=== PATIENT | male | born 1950 | race Caucasian/White ===

== ENCOUNTER 2024-10-13 14:04 | Outpatient (CLI) | payer MEDICARE, BC, SELFPAY ==
--- NOTE | ~2024-10-13 | XR_ITS ---
XR hip LT min 2V 10/13/2024 14:24 Indication: Left hip pain Procedure: 2 views left hip Comparison: No prior studies for comparison. Findings: There is mild osteoarthritis of the left hip. No fracture, subluxation or dislocation. No s oft tissue abnormality. Impression: 1: Mild osteoarthritis of the left hip. Reviewed, dictated and finalized at location B. [employer] Impression: 1: Mild osteoarthritis of the left hip.
== END 2024-10-13 14:05 | disposition home or self-care (01) ==
LOC: MICIMG 14:09
PROVIDERS: PCP Family Medicine; Visit Provider Family Medicine
DX: M16.12 Unilateral primary osteoarthritis, left hip (principal)
CPT/HCPCS: 73502

== ENCOUNTER 2025-08-10 21:56 | Emergency (ER) | payer MEDICARE, BC, SELFPAY ==
[2025-08-10 22:00] VITALS: BP 171/97; PULSE 56; RESP 20; TEMP 36.7; O2SAT 99
[2025-08-10 22:13] VITALS: BP 164/85; PULSE 68; RESP 18; TEMP 36.6; O2SAT 99
--- OUTSIDE RECORDS SUMMARY | 2025-08-10 22:47 | XMS_ITS | Encounter Summary ---
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 Historical Provider Final Res ult * PROCEDURE - RESULT (07/18/2017 12:00 AM CDT) Narrative 07/18/2017 12:00 AM CDT Ordered by an unspecified provider. Historical Provider Final Res ult documented in this encounter Visit Diagnoses Not on filedocumented in this encounter Additional Health Concerns Infection Onset Date Last Indicated Resolved Time COVID: Suspected 07/26/2020 07/26/2020 07/27/2020 2:15 PM CDT COVID19 07/26/2020 07/26/2020 08/09/2020 3:07 AM CDT COVID: Recovered Comment:Added based on recent COVID infection. 08/09/2020 09/28/2020 12/07/2020 3:[address] documented as of this encounter Care Teams Food Storeroom Clerk Relationship Specialty Start Date End Date Nirmal Ely DO PCP - General Family Medicine 04/01/19 documented as of this encounter
--- OUTSIDE RECORDS SUMMARY | 2025-08-10 22:47 | XMS_ITS | Clinical Summary ---
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 Gender Identity Not on file Sexual Orientation Not on file Plan of Treatment Health Maintenance Due Date Last Done Comments Hepatitis C Virus (HCV) Screening 1950 Pneumococcal Immunization (5 0+ years) (1 of 1 - PCV) 1998 Zoster Immunization (1 of 2) 1998 Respiratory Syncytial Virus (RSV) Immunization (Adult) (1 - 1-dose 75+ series) 2023 Influenza Immunization (#1) 2025 10/01/2021 SARS-COV-2 Immunization ( season) 2025 12/08/2021, 02/04/2021, 01/13/2021 DTaP/Tdap/Td Immunization Discontinued 10/01/2021 TdaP Immunization Completed 10/01/2021 Hepatitis B Immunization Aged Out No longer eligible based on patient's age to complete this topic Human Papillomavirus (HPV) Immunization Aged Out No longer eligible based on patient's age to complete this topic Meningococcal Immunization (ACWY) Aged Out No longer eligible based on patient's age to complete this topic Rotavirus Immunization Aged Out No lo nger eligible based on patient's age to complete this topic
--- OUTSIDE RECORDS SUMMARY | 2025-08-10 22:47 | XMS_ITS | Clinical Summary ---
Author Organization [facility] Address [address] [place] [address] Care Team Providers Care Digital Account Coordinator Name Role Phone Jose De Jesus Cotto DO Primary Care Provider [phone] Allergies No known active allergies Medications amLODIPine (NORVASC) 5 MG tablet Take 1 tablet (5 mg total) by mouth daily. 3 Active benazepril (LOTENSIN) 40 MG tablet Take 1 tablet (40 mg total) by mouth daily. 3 Active lovastatin (MEVACOR) 20 MG tablet Take 1 tablet (20 mg total) by mouth daily. 3 Active multivitamin (THERA) tablet Take 1 tablet by mouth daily. Active traMADol (ULTRAM) 50 MG tablet Take 1 tablet (50 mg total) by mouth nightly at bedtime. 4 Active acetaminophen-c odeine (TYLENOL #3) 300-30 MG tablet Take 1 tablet by mouth nightly as needed. at bedtime. 5 Active fluticasone propionate (FLONASE) 50 MCG/ACT nasal spray 2 sprays by Nasal route daily. 16 g 5 Active clotrimazole (LOTRIMIN AF) 1 % cream APPLY TO THE AFFECTED AND SURROUNDING AREAS OF SKIN BY TOPICAL ROUTE 2 TIMES PER DAY IN THE MORNING AND EVENING 5 Active tamsulosin (FLOMAX) 0.4 MG Cap Take 1 capsule (0.4 mg total) by mouth nightly at bedtime. Active Active Problems Problem Noted Date Diagnosed Date Bradycardia 06/13/2025 Assessment & Plan (06/13/2025 2:51 PM CDT): He was recently evaluated in the ER due to bradycardia and dizziness. He wore an event monitor 09/2024 that did not show any significant heart block or pauses. Given ongoing concerns, will repeat a 2-week event monitor to assess for any significant bradyarrhythmias Dizziness 06/13/2025 Assessment & Plan (06/13/2025 2:54 PM CDT): Patient has ongoing concerns about dizziness especially with bending over. Checking a 2-week event monitor as noted above. Recent CTA head and neck without any significant carotid artery disease. Recent echocardiogram with normal LVEF and no significant valvular abnormalities. Advised patient to check orthostatic vital signs at home. May benefit from ENT evaluation. Cellulitis of left lower limb 03/16/2025 Pain of left calf 03/16/2025 Morbid obesity 11/15/2024 PFO (patent foramen ovale) ([facility]) 11/15/2024 Assessment & Plan (06/13/2025 2:46 PM CDT): Echocardiogram after recent CVA showed a small PFO. Will reach out to neurology to see recommendations regarding PFO closure. Assessment & Plan (01/04/2025 2:05 PM PELLET MACHINE OPERATOR): I am recommending that he follow-up with neurology to evaluate for PFO as a potential source of his cerebrovascular accident. I did discuss the procedure of patent foramen ovale closure with the patient. I discussed risks and benefits of the procedure that include but are not limited to: Bleeding, infection, cerebrovascular accident and device embolization. I quoted a risk of 1% with device embolization. I did explain that if there was device embolization, there could be a need for cardiac surgery. Assessment & Plan (11/15/2024 12:48 PM PELLET MACHINE OPERATOR): Patient recently hospitalized for a small left parietal CVA. Echocardiogram revealed a small PFO. Patient has not followed up with neurology as an outpatient. CVA (cerebral vascular accident) ([facility]) 11/15/2024 Assessment & Plan (11/15/2024 12:59 PM PELLET MACHINE OPERATOR): Recent hospitalization at the beginning of September for a small left-sided parietal CVA. Echocardiogram completed at that time showed a small PFO. MCOT results are pending. Patient had a neurology consult while in the hospital and was started on Eliquis due to also finding pulmonary emboli on CT imaging. If Eliquis is stopped, neurology recommended single antiplatelet therapy. Patient has not followed up with neurology as an outpatient. Laceration of right lower leg 10/11/2024 Syncope 10/04/2024 Assessment & Plan (11/15/2024 1:13 PM PELLET MACHINE OPERATOR): Patient had a syncopal event at the end of September. Completed a MCOT with results pending. No recurrent episodes of syncope since discharge. PE (pulmonary thromboembolism) ([facility]) 09/23/2024 Assessment & Plan (06/13/2025 2:40 PM CDT): Patient had multiple nonocclusive right pulmonary emboli found on CT 09/23/2024 with no evidence of right heart strain. He has completed greater than 3 months worth of anticoagulation. Advised patient he can stop Eliquis at this time. Assessment & Plan (01/04/2025 2:04 PM PELLET MACHINE OPERATOR): Patient had Multiple nonocclusive right pulmonary emboli found on CT 09/23/2024 with no evidence of right heart strain. Currently on anticoagulation with Eliquis. Assessment & Plan (11/15/2024 12:37 PM PELLET MACHINE OPERATOR): Patient had Multiple nonocclusive right pulmonary emboli found on CT 09/23/2024 with no evidence of right heart strain. Currently on anticoagulation with Eliquis and will continue for 3 months. Cerebrovascular accident (CV A) due to embolism of left middle cerebral artery ([facility]) 09/22/2024 Assessment & Plan (06/13/2025 2:49 PM CDT): He presented to the hospital in September 2024 with right upper extremity weakness and was found to have an acute infarct in the left parietal lobe. He was also found to have a DVT at the time. His MRI shows old infarcts in the cerebellum and the caudate nucleus. His CTA did not show any significant disease in the intracranial vessels. He wore an event monitor that shows no signs of atrial fibrillation. Will reach out to neurology to discuss possible need for PFO closure. Assessment & Plan (01/04/2025 2:04 PM PELLET MACHINE OPERATOR): He presented to the hospital in September 2024 with right upper extremity weakness and was found to have an acute infarct in the left parietal lobe. He was also found to have a DVT at the time. I am recommending urology consultation to determine the etiology of his cerebrovascular accidents. His MRI also shows old infarcts in the cerebellum and the caudate nucleus. His CTA did not show any significant disease in the intracranial vessels. He wore an event monitor that shows no signs of atrial fibrillation. Morbid obesity 04/06/2024 Idiopathic peripheral neuropathy 04/05/2024 Osteoarthrosis 04/05/2024 Chronic fatigue 10/22/2022 Hip pain 10/22/2022 Neuropathy 10/22/2022 Dermatitis 09/28/2019 Osteoarthritis of both hands 04/06/2019 Primary hypertension 07/07/2017 Assessment & Plan (06/13/2025 2:47 PM CDT): Blood pressure is mildly elevated in office. Continue amlodipine and benazepril. Advised patient to monitor blood pressure at home. Dyslipidemia 07/17/2016 Resolved Problems Problem Noted Date Diagnosed Date Resolved Date Encounter for follow-up exam ination after completed treatment for conditions other than malignant neoplasm 10/11/2024 06/20/2025 Full code status 10/01/2021 12/20/2024 Encounters Date Type Department Care Team Description 08/09/2025 Results Follow-Up [facility] [address] [address] Ashanti Gannon RN [facility] - [address] [facility] - Today 06/20/2025 10:30 AM CDT Telephone [facility] [address] [address] Radha De La Vega PA Holter Monitor 06/13/2025 11:00 AM CDT Office Visit [facility] [place] [address] Radha De La Vega PA Follow Up (CVA, PFO, PE) 06/13/2025 Travel 05/30/2025 11:00 AM CDT Office Visit [facility] Multispecialty Care - [facility] [address], [address] [place] [address] Rohini Camacho MD New Patient (TIA ) 05/30/2025 Travel 05/20/2025 4:34 PM CDT - 05/20/2025 8:53 PM CDT Emergency [facility] [place] [address] Aden Gr MD Poisoning; Dizziness Discharge Disposition: Home or Self Care (Routine Discharge) 05/20/2025 Travel from Last 3 Months Immunizations Immunization Administration Dates Next Due Fluzone (IIV3, Trivalent, 0.5 ML Prefilled Syrin ge) 09/24/2024 Social History Tobacco Use Types Packs/Day Years Used Date Smoking Tobacco: Never Passive Smoke Exposure: Never Smokeless Tobacco: Never Tobacco Cessation:Counseling Given: Yes Alcohol Use Standard Drinks/Week Comments Yes 0 (1 standard drink = 0.6 oz pur e alcohol) social [facility] Utilities Answer Date Recorded In the past 12 months has e [employer], or water [employer] threatened to shut off services in your home? No 09/22/2024 Humiliation, Afraid, Rape, and Kick questionnair e Answer Date Recorded Within the last year, have y ou been afraid of your partner or ex-partner? No 09/22/2024 Within the last year, have y ou been humiliated or emotionally abused in other ways by your partner or ex-partner? No Within the last year, have y ou been kicked, hit, slapped, or otherwise physically hurt by your partner or ex-partner? No 09/22/2024 Within the last year, have y ou been raped or forced to have any kind of sexual activity by your partner or ex-partner? No 09/22/2024 Overall Financial Resource Strain (CARDIA) Answe r Date Recorded How hard is it for you to pa y for the very basics like food, housing, medical care, and heating? Not hard at all 09/22/2024 PHQ-2 Answer Date Recorded Patient Health Questionnaire-2 Score 0 05/30/2025 Hunger Vital Sign Answer Date Recorded Within the past 12 months, y ou worried that your food would run out before you got the money to buy more. Never true 09/22/20 24 Within the past 12 months, t he food you bought just didn't last and you didn't have money to get more. Never true 09/22/2024 PRAPARE - Transportation Answer Date Re corded In the past 12 months, has l ack of transportation kept you from medical appointments or from getting medications? No 04/2024 In the past 12 months, has l ack of transportation kept you from meetings, work, or from getting things needed for daily living? No 09/22/2024 Housing Stability Vital Sign Answer Laurent e Recorded In the last 12 months, was t here a time when you were not able to pay the mortgage or rent on time? No 09/22/2024 In the past 12 months, how m any times have you moved where you were living? 0 09/22/2024 At any time in the past 12 m [facility], were you homeless or living in a correction (including now)? No 09/22/2024 Sex and Gender Information Value Date Recorded Sex Assigned at Male 12/13/2024 11:29 AM PELLET MACHINE OPERATOR Legal Sex Male 12:55 PM CDT Gender Identity Not on file Sexual Orientation Not on file Last Filed Vital Signs Vital Sign Reading Time Taken Comments Blood Pressure 140/80 06/13/2025 10:49 AM CDT Pulse 54 06/13/2025 10:49 AM CDT Temperature 37.1 C (98.7 F) 05/20/2025 4:26 PM CDT Respiratory Rate 23 05/20/2025 8:30 PM CDT Oxygen Saturation 98% 06/13/2025 10:49 AM CDT Inhaled Oxygen Concentration - - Weight 110 kg (242 lb 6.4 oz) 06/13/2025 10:49 A M CDT Height 180.3 cm (5' 11) 06/13/2025 10:49 AM CDT Body Mass Index 33.81 06/13/2025 10:49 AM CDT Plan of Treatment Upcoming Encounters Date Type Department Care Team (Late st Contact Info) Description 02/06/2026 1:30 PM CDT Office Visit [facility] [place] [address] Rober Trinidad MD [facility]. [address] [place] [address] 05/31/2026 1:00 PM CDT Office Visit [facility] Multispecialty Care - [facility] [address], [address] [place] [address] Rohini Camacho MD [address] [place] [address] Health Maintenance Due Date Last Done Comments Hepatitis C 1966 Pneumococcal Vaccine: 50+ Years (1 of 1 - PCV) 1998 Zoster Vaccines (1 of 2) 1998 Annual Medicare Wellness Visit 2013 RSV Immunization or 60+ Years (1 - 1-dose 75+ series) 2023 COVID-19 Vaccine (4 - 2024-2 6 season) 2025 12/08/2021, 02/04/2021, 01/13/2021 DTaP, Tdap and Td Vaccines ( 2 - Td or Tdap) 10/01/2031 10/01/2021 PHQ-2 (Physician [place]) Completed 05/30/2025 Meningococcal B Vaccine Aged Out No l onger eligible based on patient's age to complete this topic Meningococcal Vaccine Aged Out No amanda hima eligible based on patient's age to complete this topic RSV Immunizations Under 20 Months Aged Out No longer eligible b ased on patient's age to complete this topic Goals Goal Patient Goal Type Associated Problems Recent Progress Patient-Stated? 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 Procedure Name Priority Date/Time Associated Diagnosis Comments MOBILE CONTINUOUS TELEMETRY Routine 07/26/2025 4:04 PM CDT Bradycardia ECG 12-LEAD STAT 05/20/2025 7:00 PM CDT TROPONIN, QUANT STAT 05/20/2025 6:55 PM CDT HC URINALYSIS AUTO W/O MICRO STAT 05/20/2025 5:14 PM CDT XR CHEST PORTABLE STAT 05/20/2025 4:5 4 PM CDT ECG 12-LEAD Routine 05/20/2025 4:44 PM CDT PARTIAL THROMBOPLASTIN TIME,PTT STAT 05/20/2025 4:41 PM CDT PROTHROMBIN TIME, VENOUS STAT 05/20/2025 4:41 PM CDT TSH W/REFLEX STAT 05/20/2025 4:41 PM CDT TROPONIN, QUANT STAT 05/20/2025 4:41 PM CDT COMPREHENSIVE METABOLIC PANEL STAT 05/20/2025 4:41 PM CDT CBC W/DIFF AUTOMATED STAT 05/20/2025 4:41 PM CDT from Last 3 Months Results * CLINIC - [address] MCT - Today (07/26/2025 4:04 PM CDT) Narrative [facility] - 07/26/2025 4:04 PM CDT [facility] [place], [place] [address] MERCHANT TAILOR REPORT PATIENT NAME: Nunu Reeves : 1950 DATE OF TESTIN/18-07/17/25 TYPE OF MONITOR: Mobile Cardiac Telemetry (MCT) PCP: JOSE DE JESUS COTTO DO INTERPRETING TECHNICIAN SUPPORT ENGINEER: ROBER TRINIDAD M.D. INDICATION: Bradycardia FINDINGS: Nunu Reeves underwent monitoring for a total of 12 days, 17 hours 19 minutes. Baseline rhythm: The baseline rhythm was normal sinus with heart rates ranging between 43 and 110 beats per minute, with average rate of 63 beats per minute. Sinus node function: Sinus node function was normal with no evidence of severe bradycardia or pauses longer than 3 seconds. A-V conduction: A-V conduction was normal with no evidence of significant A-V block. Atrial arrhythmias: There were frequent PACs, a total of 234, 918 PACs over 14 days, which accounted for 21% of total heart beats. Atrial tachycardia was observed. Atrial fibrillation was not observed. Atrial flutter was not observed. Ventricular arrhythmias: There were rare PVCs, a total of 1,307 PVCs over 14 days, which accounted for <1% of total heart beats. Ventricular tachycardia was not observed. Symptoms: The patient reported no symptoms. SUMMARY: No significant arrhythmias or heart block Frequent PACs us Radha COX CV VASCULAR ORDERABLES Final R esult [facility] * ECG 12 lead (05/20/2025 7:00 PM CDT) Only the most recent of2 resultswithin the time period is included. 05/20/2025 7:00 PM CDT Narrative [facility] - 05/21/2025 6:00 AM CDT [facility] [address] Test Date: 2025-05-20 Pat Name: NUNU REEVES Department: 41 Room: [id number] Gender: Male Budget Consultant: [id number] : 1950 Requested By: ADEN GR Order Number: [id number] Reading MD: Anival Kennedy Measurements Intervals [place] Rate: 74 P: 90 RI: 241 QRS: -34 QRSD: 121 T: 64 QT: 399 QTc: 445 Interpretive Statements SINUS RHYTHM WITH FIRST DEGREE AV BLOCK WITH FREQUENT SUPRAVENTRICULAR PREMATURE COMPLEXES MARKED LEFT AXIS DEVIATION [QRS AXIS < -30] POSSIBLE LEFT VENTRICULAR HYPERTROPHY [VOLTAGE CRITERIA PLUS LAE OR QRS WIDENING] Compared to ECG 05/20/2025 16:44:58 No significant changes Other ischemic changes, not STEMI Preliminary EKG Interpretation by Aden Gr M.D. Procedure Note Anival Kennedy MD - 05/21/[address] [place] [facility] Test Date: 2025-05-20 Pat Name: NUNU REEVES Department: 41 Room: [id number] Gender: Male Budget Consultant: [id number] : 1950 Requested By: ADEN GR Order Number: [id number] Reading MD: Anival Kennedy Measurements Intervals [place] Rate: 74 P: 90 RI: 241 QRS: -34 QRSD: 121 T: 64 QT: 399 QTc: 445 Interpretive Statements SINUS RHYTHM WITH FIRST DEGREE AV BLOCK WITH FREQUENT SUPRAVENTRICULAR PREMATURE COMPLEXES MARKED LEFT AXIS DEVIATION [QRS AXIS < -30] POSSIBLE LEFT VENTRICULAR HYPERTROPHY [VOLTAGE CRITERIA PLUS LAE OR QRS WIDENING] Compared to ECG 05/20/2025 16:44:58 No significant changes Other ischemic changes, not STEMI Preliminary EKG Interpretation by Aden Gr M.D. us Aden Gr MD ECG ORDERABLES Final R esult [facility] * TROPONIN, QUANT (05/20/2025 6:55 PM CDT) Only the most recent of2 resultswithin the time period is included. TROPONIN I HIGH SENSITIVITY 8 <79 ng/L 05/20/2025 7:23 PM CDT [facility] Comment: HIGH DOSES OF BIOTIN, TROPONIN-SPECIFIC AUTOANTIBODIES, AND ANTIBODY THERAPY CONTAINING HAMA MAY INTERFERE WITH THIS TEST RESULT. CORRELATION TO CLINICAL HISTORY AND PRESENTATION RECOMMENDED. 05/20/2025 6:55 PM CDT Aden Gr MD LABORATORY Final R esult [facility] [address] [place] [address], * URINALYSIS (05/20/2025 5:14 PM CDT) SPECIMEN TYPE URINE CLEAN CATCH 05/20/2025 5:13 PM CDT [facility] COLOR (U) YELLOW 05/20/2025 5:40 PM CDT [facility] TRANSPARENCY CLEAR 05/20/2025 5:40 PM CDT [facility] SPECIFIC GRAVITY (U) 1.029 1.001 - 1.030 05/20/2025 5:40 PM CDT [facility] U PH 6.0 5.0 - 9.0 05/20/2025 5:40 PM CDT [facility] LEUKOCYTES (U) NEGATIVE NEGATIVE 05/20/2025 5:40 PM CDT [facility] NITRITES NEGATIVE NEGATIVE 05/20/2025 5:40 PM CDT [facility] PROTEIN RANDOM (U) 10 <30 MG/DL 05/20/2025 5:40 PM CDT [facility] GLUCOSE (U) NORMAL NORMAL MG/DL 05/20/2025 5:[address] [facility] [place] MG/DL (U) NEGATIVE NEGATIVE MG/DL 05/20/2025 5:40 PM CDT [facility] UROBILINOGEN NORMAL NORMAL MG/DL 05/20/2025 5:40 PM CDT [facility] BILIRUBIN (U) NEGATIVE NEGATIVE MG/DL 05/20/2025 5:40 PM CDT [facility] BLOOD (U) NEGATIVE NEGATIVE 05/20/2025 5:40 PM CDT [facility] URINE SPECIMEN OBTAINED BY CLEAN CATCH PROCEDURE / Unknown 05/20/2025 5:14 PM CDT Aden Gr MD URINE ORDERABLES Final Result [facility] [address] [place] [address], [place] [phone] * XR CHEST PORTABLE (05/20/2025 4:54 PM CDT) Anatomical Region Laterality Modality Chest Radiographic Ayse ging 05/20/2025 5:03 PM CDT Impressions 05/20/2025 5:15 PM CDT IMPRESSION: Minimal left basilar opacity suggesting minimal left basilar atelectasis and/or trace pleural effusion. Preliminary: Kaylee Beth DO05/20/2025 5:06 PM The attending radiologist has reviewed the image(s) and agrees with the content of this report. Referred By: VEE FORRESTER Interpreted By: Kaylee Beth DO, 05/20/2025 5:03 PM Narrative 05/20/2025 5:15 PM CDT [facility] [address] [place], [place] [address] [facility] [place] [address] Examination: Portable chest x-ray 1 view Exam time: 05/20/2025 4:44 PM Clinical history: Generalized weakness, dizziness. Bradycardia. Comparison: Chest x-ray 10/04/2024 Technique: Upright AP portable view of the chest was obtained. Findings: The cardiomediastinal silhouette is normal in size. Tortuosity there are atherosclerotic calcifications of the thoracic aorta. Pulmonary vasculature is appropriately distributed. There is minimal left basilar opacity suggesting minimal left basilar atelectasis and/or trace pleural effusion. There is no sizable pleural effusion or pneumothorax. Procedure Note Danielito Galloway DO - 05/20/2025 [place] [address] Examination: Portable chest x-ray 1 view Exam time: 05/20/2025 4:44 PM Clinical history: Generalized weakness, dizziness. Bradycardia. Comparison: Chest x-ray 10/04/2024 Technique: Upright AP portable view of the chest was obtained. Findings: The cardiomediastinal silhouette is normal in size. Tortuosity there areatherosclerotic calcifications of the thoracic aorta. Pulmonaryvasculature is appropriately distributed. There is minimal left basilaropacity suggesting minimal left basilar atelectasis and/or trace pleuraleffusion. There is no sizable pleural effusion or pneumothorax. IMPRESSION: Minimal left basilar opacity suggesting minimal left basilar atelectasisand/or trace pleural effusion. Preliminary: Kaylee Beth DO05/20/2025 5:06 PM The attending radiologist has reviewed the image(s) and agrees with thecontent of this report. Referred By: VEE FORRESTER Interpreted By: Kaylee Beth DO, 05/20/2025 5:03 PM us Vee Forrester [facility] [employer] Final Resul t * TSH W/REFLEX (05/20/2025 4:41 PM CDT) TSH 3.340 0.358 - 3.74 uIU/ML 05/20/2025 5:29 PM CDT [facility] Comment: HIGH DOSES OF BIOTIN MAY INTERFERE WITH THIS TEST RESULT. CORRELATION TO CLINICAL HISTORY AND PRESENTATION RECOMMENDED. FREE T4 NOT INDICATED 05/20/2025 4:41 PM CDT Aden Gr MD LABORATORY Final R esult [facility] [address] [place] [address], [place] [phone] * (ABNORMAL) PARTIAL THROMBOPLASTIN TIME,PTT (05/20/2025 4:41 PM CDT) PTT 43.0(H) 25.1 - 36.5 SEC 05/20/2025 5:14 PM CDT [facility] 05/20/2025 4:41 PM CDT Aden Gr MD LABORATORY Final R esult [facility] [address] [place] [address], [place] [phone] * (ABNORMAL) PROTIME/INR, VENOUS (05/20/2025 4:41 PM CDT) PROTIME 13.3(H) 10.2 - 12.9 SEC 05/20/2025 5:14 PM CDT [facility] INR 1.2 05/20/2025 5:14 PM CDT [facility] Comment: Recommended INR Therapeutic Goals: 2.0-3.0 Routine Therapy 2.5-3.5 Mechanical Prosthetic Valves (High Risk) 05/20/2025 4:41 PM CDT us Aden Gr MD LABORATORY Final R esult [facility] [address] [place] [address], * (ABNORMAL) COMPREHENSIVE METABOLIC PANEL (05/20/2025 4:41 PM CDT) GLUCOSE 122(H) 70 - 99 MG/DL 05/20/2025 5:10 PM CDT [facility] BUN 19(H) 7 - 18 MG/DL 05/20/2025 5:10 PM CDT [facility] CREATININE S/P/B 1.16 0.7 - 1.3 MG/DL 05/20/2025 5:10 PM CDT [facility] SODIUM S/P/B 141 136 - 145 MMOL/L 05/20/2025 5:10 PM CDT [facility] POTASSIUM S/P/B 3.9 3.5 - 5.1 MMOL/L 05/20/2025 5:10 PM CDT [facility] CHLORIDE S/P/B 110 97 - 115 MMOL/L 05/20/2025 5:10 PM CDT [facility] CO2 26.9 21 - 32 MMOL/L 05/20/2025 5:10 PM CDT [facility] CALCIUM S/P/B 8.6 8.5 - 10.1 MG/DL 05/20/2025 5:10 PM CDT [facility] BILIRUBIN TOTAL S/P/B 0.5 0.2 - 1.2 MG/DL 05/20/2025 5:10 PM CDT [facility] Comment: THIS ASSAY IS NOT RECOMMENDED FOR PATIENTS UNDERGOING TREATMENT WITH ELTROMBOPAG DUE TO THE POTENTIAL FOR FALSELY ELEVATED RESULTS. TOTAL PROTEIN S/P/B 7.0 6.4 - 8.2 G/DL 05/20/2025 5:10 PM CDT [facility] ALBUMIN S/P/B 3.5 3.4 - 5.0 G/DL 05/20/2025 5:10 PM CDT [facility] AST 16 15 - 37 U/L 05/20/2025 5:10 PM CDT [facility] ALT 26 16 - 60 U/L 05/20/2025 5:10 PM CDT [facility] ALKALINE PHOSPHATASE S/P/B 104 50 - 136 U/L 05/20/2025 5:10 PM CDT [facility] ANION GAP 4.1 2 - 10 MMOL/L 05/20/2025 5:10 PM CDT [facility] BUN CREATININE RATIO 16.4 6 - 26 05/20/2025 5:10 PM CDT [facility] A/G RATIO 1.0 1.0 - 2.0 RATIO 05/20/2025 5:10 PM CDT [facility] GFR ESTIMATE 65(L) >90 ML/MIN/1.7 3 M2 05/20/2025 5:10 PM CDT [facility] Comment: NOTE: eGFR is not calculated for patients <18 years of age or gender unknown. This is an estimated GFR calculation using the new CKD EPI creatinine equation without race and so does not require a correction factor for race. This estimated GFR should not be used for calculating drug doses. 05/20/2025 4:41 PM CDT Vee Forrester [employer] [facility] Final Resul t [facility] [address] [place] [address], [place] [phone] * (ABNORMAL) CBC W/DIFF AUTOMATED (05/20/2025 4:41 PM CDT) [facility] WBC 5.67 4.5 - 11.0 x10'3/uL 05/20/2025 4:54 PM CDT [facility] RBC 4.52(L) 4.70 - 6.10 x10'6/uL 05/20/2025 4:54 PM CDT [facility] HGB 13.5(L) 14.0 - 18.0 G/DL 05/20/2025 4:54 PM CDT [facility] HCT 41.4(L) 43.0 - 54.0 % 05/20/2025 4:54 PM CDT [facility] MCV 91.6 80.0 - 94.0 FL 05/20/2025 4:54 PM CDT [facility] MCH 29.9 27.0 - 31.0 PG 05/20/2025 4:54 PM CDT [facility] MCHC 32.6 32.0 - 36.0 G/DL 05/20/2025 4:54 PM CDT [facility] RDW 13.6 11.5 - 14.5 % 05/20/2025 4:54 PM CDT [facility] PLT 191 130 - 400 x10'3/uL 05/20/2025 4:54 PM CDT [facility] MPV 11.1 9.3 - 12.2 FL 05/20/2025 4:54 PM CDT [facility] DIFFERENTIAL TYPE AUTOMATED DIFFERENTIAL 05/20/2025 4:54 PM CDT [facility] NEUTROPHILS % 61.1 % 05/20/2025 4:54 PM CDT [facility] LYMPHOCYTES % 26.5 % 05/20/2025 4:54 PM CDT [facility] MONOCYTES % 8.6 % 05/20/2025 4:54 PM CDT [facility] EOSINOPHILS 3.2 % 05/20/2025 4:54 PM CDT [facility] BASOPHILS 0.4 % 05/20/2025 4:54 PM CDT [facility] IMMATURE GRANS % 0.2 % 05/20/20 4:54 PM CDT [facility] ABS. NEUTROPHILS 3.47 1.80 - 7.70 x10'3/uL 05/20/2025 4:54 PM CDT [facility] ABS. LYMPHOCYTES 1.50 1.00 - 4.80 x10'3/uL 05/20/2025 4:54 PM CDT [facility] ABS. MONOCYTES 0.49 0.30 - 0.82 x10'3/uL 05/20/2025 4:54 PM CDT [facility] ABS. EOSINOPHILS 0.18 0.04 - 0.54 x10'3/uL 05/20/2025 4:54 PM CDT [facility] ABS. BASOPHILS 0.02 0.01 - 0.08 x10'3/uL 05/20/2025 4:54 PM CDT [facility] ABS. IMMATURE GRANULOCYTES 0.01 0.00 - 0.49 x10'3/uL 05/20/2025 4:54 PM CDT [facility] 05/20/2025 4:41 PM CDT us Vee Forrester [facility] [employer] [facility] Final Resul t [facility] [address] [facility] [place] [address], [place] [phone] from Last 3 Months Insurance [address]ICARE [facility] Advance Directives * Full Code (Latest Code Status on File) Date Activated Date Inactivated Comments 10/04/2024 5:41 AM 10/04/2024 5:59 PM * Full Code Date Activated Date Inactivated Comments 09/22/2024 7:13 PM 09/24/2024 2:53 PM Care Teams Digital Account Coordinator Relationship Specialty Start Date End Date Jose De Jesus Cotto DO PCP - General FAMILY PRACTICE 09/23/24
--- OUTSIDE RECORDS SUMMARY | 2025-08-10 22:47 | XMS_ITS | Encounter Summary ---
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 Historical Provider Final Res ult documented in this encounter Visit Diagnoses Not on filedocumented in this encounter Additional Health Concerns Infection Onset Date Last Indicated Resolved Time COVID: Suspected 07/26/2020 07/26/2020 07/27/2020 2:15 PM CDT COVID19 07/26/2020 07/26/2020 08/09/2020 3:07 AM CDT COVID: Recovered Comment:Added based on recent COVID infection. 08/09/2020 09/28/2020 12/07/2020 3:05 AM Nicol BARAJAS documented as of this encounter Care Teams Legal Internship Relationship Specialty Start Date End Date Nirmal Ely DO PCP - General Family Medicine 04/01/19 documented as of this encounter
--- OUTSIDE RECORDS SUMMARY | 2025-08-10 22:47 | XMS_ITS | Encounter Summary ---
Author Organization [facility] Address [address] [place] [address] Care Team Providers Care Endodontics Dentist Name Role Phone Nirmal Cotto DO Primary Care Provider [phone] Encounter Details Date Type Department Care Team (Late st Contact Info) Description 08/09/2025 Results Follow-Up [facility], [address] [address] Ashanti Gannon, RN [facility] [address] [facility] Social History Tobacco Use Types Packs/Day Years Used Date Smoking Tobacco: Never Passive Smoke Exposure: Never Smokeless Tobacco: Never Alcohol Use Standard Drinks/Week Comments Yes 0 (1 standard drink = 0.6 oz pur e alcohol) social [facility] Utilities Answer Date Recorded In the past 12 months has e electric, gas, oil, or water [employer] threatened to shut off services in your [...] any time in the past 12 m [facility], were you homeless or living in a fpc (including now)? 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 Answer Date of Assessment Author Status No 09/22/2024 6:21 PM Ángel To RN Active * Do you have serious difficulty walking or climbing stairs? Answer Date of Assessment Author Status No 09/22/2024 6:21 PM Ángel To RN Active * Do you have difficulty dressing or bathing? Answer Date of Assessment Author Status No 09/22/2024 6:21 PM Ángel To, SHEEBA Active * Because of a physical, mental, or emotional condition, do you have difficulty doing errands alone such as visiting a doctor's office or shopping? Answer Date of Assessment Author Status No 09/22/2024 6:21 PM Ángel To RN Active documented as of this encounter Mental Status * Because of a physical, mental, or emotional condition, do you have serious difficulty concentrating, remembering, or making decisions? Answer Entry Date Author Status No 09/22/2024 6:21 PM Ángel To, SHEEBA Active documented in this encounter Progress Notes * Ashanti Gannon RN - 08/09/2025 3:50 PM CDT Patient informed of the result/recommendations and v/u. Patient had no further questions. documented in this encounter Plan of Treatment Upcoming Encounters Date Type Department Care Team (Late st Contact Info) Description 02/06/2026 1:30 PM CDT Office Visit [facility] [facility], [address] [place] [address] Dc Parson MD [facility]. [address] [place] [address] 05/31/2026 1:00 PM CDT Office Visit [facility] - [facility] [address] [facility], [address] [place] [id number] Rohini Camacho MD [address] [place] [address] documented as of this encounter Goals Goal Patient Goal Type Associated Problems Recent Progress Patient-Stated? Author Health - patient able to perform ADLs independently Lifestyle No Traci Pires, RN documented as of this encounter Visit Diagnoses Not on filedocumented in this encounter Care Teams Endodontics Dentist Relationship Specialty Start Date End Date Nirmal Cotto DO PCP - General FAMILY PRACTICE 09/23/24 documented as of this encounter
--- OUTSIDE RECORDS SUMMARY | 2025-08-10 22:47 | XMS_ITS | Clinical Summary ---
Author Organization [facility] Address [address] [place] [address] Care Team Providers Care Integration Analyst Name Role Phone Nirmal Ely DO Primary Care Provider + Allergies No known active allergies Medications mepprbor-cqs-SS -lycopen-lutein 0.4 mg-300 mcg- 250 mcg tablet Take 1 tablet by mouth daily Active aspirin 325 mg enteric coated tablet 1 tablet (325 mg total) daily Active acetaminophen (TYLENOL ARTHRITIS PAIN ORAL) Take 2 tablets by mouth daily Active furosemide (LASIX) 40 mg tablet Take 1 tablet (40 mg total) by mouth daily 30 tablet 4 10/08/2023 Active potassium chloride ER (KLOR-CON) 20 mEq CR tablet Take 1 tablet (20 mEq total) by mouth daily 30 tablet 4 10/08/2023 Active lovastatin (MEVACOR) 20 mg tablet Take 1 tablet (20 mg total) by mouth daily 90 tablet 3 10/08/2023 Active benazepriL (LOTENSIN) 40 mg tablet Take 1 tablet (40 mg total) by mouth daily 90 tablet 3 10/08/2023 Active amLODIPine (NORVASC) 5 mg tablet Take 1 tablet (5 mg total) by mouth daily 90 tablet 3 10/08/2023 Active Active Problems Problem Noted Date Diagnosed Date Encounter for Medicare annual wellness exam 04/2022 Assessment & Plan (10/22/2022 5:32 PM SERVER DEVELOPER): Chart reviewed Chronic fatigue 10/22/2022 Assessment & Plan (10/22/2022 5:33 PM SERVER DEVELOPER): Check tsh Free t4 cbc Chem 7 lipid lft psa Hip pain 10/22/2022 Assessment & Plan (10/22/2022 5:35 PM SERVER DEVELOPER): Chronic worsening X ray b hips Neuropathy 10/22/2022 Assessment & Plan (10/22/2022 5:36 PM SERVER DEVELOPER): rle Check a ncs Full code status 10/01/2021 Assessment & Plan (10/01/2021 5:34 PM SERVER DEVELOPER): Discussed with patient approximately 20minutes End of life issues/Advanced Directives/Healthcare Surrogate. Discussed DNR. Encouraged to discuss further with family and consult workers compensation attorney or complete [place] approved form, which I would be glad to assist them with completion. All questions answered. polst form filled out and signed Dermatitis 09/28/2019 Assessment & Plan (09/28/2019 5:10 PM SERVER DEVELOPER): lamisil cream Osteoarthritis of both hands 04/06/2019 Assessment & Plan (09/28/2020 5:46 PM SERVER DEVELOPER): Patient is well controlled. Continue current treatment. Assessment & Plan (04/06/2019 4:19 PM CDT): Monitor Essential hypertension 07/07/2017 Assessment & Plan (09/28/2020 5:46 PM SERVER DEVELOPER): Patient is well controlled. Continue current treatment. Assessment & Plan (08/07/2020 3:02 PM CDT): Patient is well controlled. Continue current treatment. Assessment & Plan (09/28/2019 5:09 PM SERVER DEVELOPER): Patient is well controlled. Continue current treatment. Assessment & Plan (04/06/2019 4:20 PM CDT): Patient is well controlled. Continue current treatment. Dyslipidemia 07/17/2016 Assessment & Plan (09/28/2020 5:46 PM SERVER DEVELOPER): lab Assessment & Plan (04/06/2019 4:20 PM CDT): Patient is well controlled. Continue current treatment. Resolved Problems Problem Noted Date Diagnosed Date Resolved Date Fatigue 10/01/2021 10/22/2022 Assessment & Plan (10/01/2021 5:38 PM SERVER DEVELOPER): He has been living at his rbyepv-xf-xbq's. She has been having some health problems. He is no longer sleeping in a chair has been sleeping in bed. He is experiencing increasing fatigue. His labs from January of 2021 were within normal limits. I will recheck a CBC Chem 7 and a TSH to evaluate for any abnormality. Upper respiratory infection 07/26/2020 09/28/2020 Assessment & Plan (08/07/2020 3:02 PM CDT): Resolved Assessment & Plan (07/26/2020 8:32 AM CDT): Check covid Quarantine 2 weeks Nasal lesion 09/28/2019 09/28/2020 Assessment & Plan (09/28/2019 5:09 PM SERVER DEVELOPER): See dermatology Sinus congestion 04/06/2019 09/28/2020 Assessment & Plan (04/06/2019 4:19 PM CDT): Add singulair Immunizations Immunization Administration Dates Next Due Influenza, Quadrivalent, Hig h Dose, Preservative Free, Intrr 10/22/2022,10/01/2021 Influenza, Unspecified 10/08/2023(Deferred: Falguni ent Refused) Pneumococcal Conjugate Pcv20 10/08/2023(Deferred : Patient Refused) Tdap 10/01/2021 Surgical History Surgery Date Site/Laterality Comments LIPOMA RESECTION BASAL CELL CARCINOMA EXCISION Medical History Medical History Date Comments HTN (hypertension) Hyperlipidemia TIA (transient ischemic attack) Stroke (HCC) Family History Medical History Relation Name Comments Mental illness Father Heart disease Mother Relation Name Status Comments Father Mother Social History Tobacco Use Types Packs/Day Years Used Date Smoking Tobacco: Never Smokeless Tobacco: Never Tobacco Cessation:Counseling Given: Not Answered Alcohol Use Standard Drinks/Week Comments Yes 0 (1 standard drink = 0.6 oz pur e alcohol) occ AUDIT-C Answer Date Recorded Q1: How often do you have a drink containing alcohol? Never 10/22/2022 Q2: How many drinks containi ng alcohol do you have on a typical day when you are drinking? Patient does not drink Q3: How often do you have si x or more drinks on one occasion? Never 10/22/2022 PHQ-2 Answer Date Recorded PHQ-2 Total Score (If total score is 3 or more points, staff should administer the PHQ-9) 0 10/22/2022 Personal Safety Answer Date Recorded Getting School Help Needed Not on file 10/27 Sex and Gender Information Value Date Recorded Sex Assigned at Not on file Legal Sex Male 11:02 PM SERVER DEVELOPER Gender Identity Not on file Sexual Orientation Not on file Obstetrics History Last Filed Vital Signs Vital Sign Reading Time Taken Comments Blood Pressure 138/92 10/08/2023 3:27 PM SERVER DEVELOPER Pulse 60 10/08/2023 3:27 PM SERVER DEVELOPER Temperature 36.5 C (97.7 F) 10/08/2023 3:27 PM SERVER DEVELOPER Respiratory Rate 20 10/08/2023 3:27 PM SERVER DEVELOPER Oxygen Saturation 99% 10/08/2023 3:27 PM SERVER DEVELOPER Inhaled Oxygen Concentration - - Weight 116.1 kg (256 lb) 10/08/2023 3:27 PM SERVER DEVELOPER Height 180.3 cm (5' 10.98) 10/08/2023 3:[address] Body Mass Index 35.72 10/08/2023 3:27 PM SERVER DEVELOPER Plan of Treatment Health Maintenance Due Date Last Done Comments Hepatitis B Screening 1968 Zoster Vaccine (1 of 2) 1998 Depression Screening 10/22/2023 10/22/2022, 10/01/2021, 09/28/2020, Additional history exists Fall Risk Assessment 10/22/2023 10/22/2022, 10/01/2021, 09/28/2020, Additional history exists Well Visit 65+ 10/22/2023 10/22/2022, 1204/2022, 10/01/2021 Covid-19 Vaccine (2024-2 6 season) 2025 12/08/2021, 02/04/2021, 01/13/2021 Influenza Vaccine (#1) 2025 4, 10/22/2022, 10/01/2021 DTaP/Tdap/Td Vaccine (2 - Td or Tdap) 10/01/2031 10/01/2021 Colon Cancer Screening-CT Colonography Discontinued 03/10/2013 Colon Cancer Screening-Colonoscopy Discontinued 03/10/2013 Colon Cancer Screening-Sigmoidoscopy Discontinued 03/10/2013 Colon Cancer Screening-DNA Stool Discontinued 10/15/20 20, 03/10/2013 Hepatitis C Screening Completed 01/30/2021 Colon Cancer Screening-FIT Discontinued 02/11, 10/15/2020, 03/10/2013 Colon Cancer Screening-FOBT Discontinued 01/16, 10/15/2020, 03/10/2013 Colorectal Cancer Screening Discontinued Pneumococcal vaccine 65+ Discontinued Procedures Procedure Name Priority Date/Time Associated Diagnosis Comments FIT OCCULT BLOOD, FECAL Routine 02/11/2021 12:00 AM CDT Anemia, unspecified type HEPATITIS C ANTIBODY Routine 01/30/2021 10:46 AM CDT Medicare annual wellness visit, subsequent Essential hypertension Dyslipidemia Osteoarthritis of both hands, unspecified osteoarthritis type STOOL DNA COLOGUARD Routine 10/15/2020 12:01 PM SERVER DEVELOPER Medicare annual wellness visit, subsequent Essential hypertension Dyslipidemia Osteoarthritis of both hands, unspecified osteoarthritis type COLONOSCOPY Routine 03/10/2013 from Last 3 Months or Most Recently Relevant to Health Maintenance Results * FIT occult blood, fecal (02/11/2021 12:00 AM CDT) Fecal globulin by immunochemistry [facility] Comment: FECAL GLOBIN BY IMMUNOCHEMISTRY Micro Number: [id number] Test Status: Final Specimen Source: INSURE (TM) FOBT TEST CARD Specimen Quality: Adequate Fecal Globin: Not Detected Stool 02/11/2021 02/13/2021 2:4 4 AM CDT Narrative [facility] - 02/14/2021 10:35 AM CDT SPLIT 02/05/2021 FROM [id number] Nirmal Ely DO LAB BODY FLUIDS AND STOO LS ORDERABLES Final Result Performing Organization Address [facility] Co de Phone Number HERNAN[facility] [address] [place] [address] * Hepatitis C antibody (01/30/2021 10:46 AM CDT) Hep C Ab NON-REACTI VE NON-REACT DREA [facility] SIGNAL TO CUT-OFF 0.01 <1.00 [facility] Comment: HCV antibody was non-reactive. There is no laboratory evidence of HCV infection. In most cases, no further action is required. However, if recent HCV exposure is suspected, a test for HCV RNA (test code 06495) is suggested. For additional information please refer to http://education.ClickingHouse/faq/ODA44v1 (This link is being provided for informational/ educational purposes only.) Blood specimen (specimen) 01/30/2021 10:46 AM CDT 01/30/2021 10:48 AM CDT Narrative [facility] - 01/31/2021 8:43 AM CDT FASTING:YES FASTING: YES us Nirmal Ely DO LAB MICROBIOLOGY - GENER AL ORDERABLES Final Result Performing Organization Address [facility] Co de Phone Number HERNAN[facility] [address] [place] [address] * Stool DNA - Cologuard (10/15/2020 12:01 PM SERVER DEVELOPER) Stool DNA - Cologuard Negative Not Applicable [facility] (CLIA #:[id number]) Comment: A negative result indicates a low likelihood that a colorectal cancer (CRC) or an advanced adenoma (adenomatous polyps with more advanced pre-malignant features) is present. The chance that a person with a negative Cologuard test has a colorectal cancer is less than 1 in 1500 (negative predictive value >99.9%) or has an advanced adenoma is less than 5.3% (negative predictive value 94.7%). These data are based on a prospective cross-sectional screening study of 10,000 individuals at average risk for colorectal cancer who were screened with both Cologuard and colonoscopy. (Demario Leslie al, N Engl J Med 2014;370(14):4931-1827) The normal value (reference range) for this assay is negative. COLOGUARD RE-SCREENING RECOMMENDATION: Periodic routine colorectal cancer screening is an important part of preventive healthcare for asymptomatic persons at average risk for colorectal cancer. Following a negative Cologuard result, the [place] Cancer Society and U.S. Multi-Society Task Force screening guidelines recommend a Cologuard re-screening interval of 3 years. References: [place] Cancer Society (ACS). Colorectal cancer prevention and early detection. [place], [place]: [place] [employer] Society; [updated 2015Mar 10]. https://www.cancer.org/cancer/skhfe-kwnavw-xwzzva/bwcrhkath-esismdtjz-vnaudqh/ac s-rec ommendations.html. Accessed July 17, 2018; Alejandro DK, Rachid ASHBY, Antoine RUELAS, Colorectal Cancer Screening: Recommendations for Physicians and Patients from the U.S. Multi-Society Task Force on Colorectal Cancer Screening, Am J Gastroenterology 2017; 112:5855-0690. TEST TYPE: Composite algorithmic analysis of stool DNA-biomarkers with hemoglobin immunoassay. Quantitative values of individual biomarkers are not reportable and are not associated with individual biomarker result reference ranges. PRECAUTIONS AND LIMITATIONS: Cologuard is intended for colorectal cancer screening of adults of either sex, 45 years or older, who are at average-risk for colorectal cancer (CRC). Cologuard has been approved for use by the U.S. FDA. Cologuard may produce a false negative or false positive result. A negative Cologuard test result does not guarantee the absence of CRC or advanced adenoma (pre-cancer). Patients with a negative Cologuard test result should be advised to continue participating in a colorectal cancer screening program. The screening interval for Cologuard is currently recommended at an interval of every 3 years by the [place] Cancer Society and U.S. Multi-Society Task Force. A false positive result occurs when Cologuard produces a positive result, even though a colonoscopy may not find colorectal cancer or precancerous polyps. The performance of Cologuard has been established in a cross sectional study (i.e., single point in time) of average-risk adults aged 50-84. Cologuard performance in patients ages 45 to 49 years was estimated by sub-group analysis of near-age groups. Cologuard performance data in a 10,000 patient pivotal study using colonoscopy as the reference method can be accessed at the following location: www.Foodfly.Above All Software/results. Additional description of the Cologuard test process, warnings and precautions can be found at www.cologuardtest.com. Rx only. Stool 10/15/2020 12:0 1 PM SERVER DEVELOPER 12/07/2020 10:57 AM SERVER DEVELOPER Nirmal Ely DO LAB BODY FLUIDS AND STOO LS ORDERABLES Final Result [facility] (CLIA #:[id number]) [place] [address] [place] [address] * Colonoscopy (03/10/2013) Anatomical Region Laterality Modality Other Historical Provider MD ENDOSCOPY PROCEDURES Ani l Result from Last 3 Months or Most Recently Relevant to Health Maintenance Insurance [facility] CHOICE PLUS [facility] HMO/PPO Address: [facility] [address] [place] [address] [place] [address] [facility] CHOICE PLUS [facility] HMO/PPO Address: [place] [address] Advance Directives For more information, please contact: [phone] Documents on File Type Date Recorded Patient Reciprocating Drill Operator Expl anation ADVANCE DIRECTIVE 10/01/2021 Care Teams Integration Analyst Relationship Specialty Start Date End Date Nirmal Ely DO PCP - General Family Medicine 04/01/19
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
== END 2025-08-10 22:51 | disposition home or self-care (01) ==
LOC: ANHED 22:45
PROVIDERS: Emergency Provider Student in an Organized Health Care Education/Training Program; PCP Family Medicine
DX: S00.531A Contusion of lip, initial encounter (principal); S50.812A Abrasion of left forearm, initial encounter; V49.40XA Driver injured in collision with unspecified motor vehicles in traffic accident, initial encounter; W22.11XA Striking against or struck by driver side automobile airbag, initial encounter
CPT/HCPCS: 99282